=== PATIENT | female | born 1980 ===

== ENCOUNTER → 2019-06-06 | Outpatient (CLI) | payer OTHER | LOC: MC.RAD 05-17 09:45 | DX: Z12.31 Encounter for screening mammogram for malignant neoplasm of breast (principal); Z98.82 Breast implant status ==

== ENCOUNTER → 2020-07-01 | Outpatient (CLI) | payer OTHER | LOC: ZCOL.LAB 17:02 | DX: B34.9 Viral infection, unspecified (principal); Z20.828 Contact with and (suspected) exposure to other viral communicable diseases ==